=== PATIENT | male | born 1980 | race African-American/Black ===

== ENCOUNTER 2017-12-09 20:53 | Emergency (ER) | payer OTHER ==
[~2017-12-09] VITALS: Ht 175.3 cm; Wt 76.5 kg
[2017-12-09 20:55] VITALS: BP 133/92
[2017-12-09] MEDS ORDERED: DEXAMETHASONE 4 MG TABLET ONE (21:54)
[2017-12-09] MEDS ORDERED: DEXAMETHASONE 4 MG TABLET PO ONE (22:00)
== END 2017-12-09 22:10 | disposition home or self-care (01) ==
LOC: ED 21:58
DX: J02.8 Acute pharyngitis due to other specified organisms (principal); B97.89 Other viral agents as the cause of diseases classified elsewhere
CPT/HCPCS: 87081; 87880; 99284

== ENCOUNTER 2017-12-16 15:08 | Emergency (ER) | payer SELFPAY ==
[~2017-12-16] VITALS: Ht 175.3 cm; Wt 74.1 kg
[2017-12-16 15:21] VITALS: BP 125/86
== END 2017-12-16 16:45 | disposition home or self-care (01) ==
LOC: ED 16:25
DX: J02.9 Acute pharyngitis, unspecified (principal)
CPT/HCPCS: 36415; 86308; 99283